=== PATIENT | female | born 1955 | race Asian ===

== ENCOUNTER 2016-05-22 17:18 | Observation (INO) | payer OTHER ==
[~2016-05-22] VITALS: Ht 170.2 cm; Wt 61.7 kg
[2016-05-22 17:56] VITALS: BP 161/93; TEMP 100.4; Ht 170.2 cm; Wt 61.7 kg
[2016-05-22 19:36] LABS: PLATELET COUNT 250 K/uL (152-353)
[2016-05-22 19:53] LABS: POTASSIUM 3.7 mmol/L (3.6-5.2); SODIUM 132 mmol/L (136-145)
[2016-05-22 20:00] VITALS: BP 139/87; TEMP 100.9
[2016-05-23 00:06] VITALS: BP 94/56; TEMP 98.6
[2016-05-23] MEDS ORDERED: LABETALOL100 MG OR (05:01)
[2016-05-23] MEDS ORDERED: HYDR5TAB9 PO (05:02)
[2016-05-23] MEDS ORDERED: METF100038 OR (05:03)
[2016-05-23] MEDS ORDERED: FENT25DI TD (05:04)
[2016-05-23] MEDS ORDERED: AMBIEN5 MG PO (05:04)
[2016-05-23 05:53] VITALS: BP 149/93; TEMP 98
[2016-05-23 08:00] VITALS: BP 160/98; TEMP 98
[2016-05-23 12:00] VITALS: BP 154/91; TEMP 98.1
[2016-05-23 16:00] VITALS: BP 158/89; TEMP 97.9
[2016-05-23 20:00] VITALS: BP 136/79; TEMP 97.8
[2016-05-24] VITALS: BP 133/76; TEMP 98.4
[2016-05-24 04:00] VITALS: BP 114/63; TEMP 98.2
[2016-05-24 08:00] VITALS: BP 155/84; TEMP 97.8
== END 2016-05-24 16:00 | disposition home or self-care (01) ==
LOC: MED/SURG 17:18 → EDBD 17:18 → MED/SURG 05-24 16:00
PROVIDERS: ADMIT Family Medicine
DX: B02.39 Other herpes zoster eye disease (principal); I89.0 Lymphedema, not elsewhere classified; C50.919 Malignant neoplasm of unspecified site of unspecified female breast; E13.9 Other specified diabetes mellitus without complications; E11.9 Type 2 diabetes mellitus without complications; I10 Essential (primary) hypertension; F32.9 Major depressive disorder, single episode, unspecified
CPT/HCPCS: 36415; 80053; 81000; 82947; 82948; 85027; 85651; 87040; 96365; 96366; 96367; 96372; 96374; 96375; 99220; G0378; G0379; J0133; J2920; J2930

== ENCOUNTER 2016-07-01 09:47 | Outpatient (CLI) | payer OTHER ==
[~2016-07-01 09:47] MED LIST: AMBIEN5 MG PO; FENT25DI TD; HYDR5TAB9 PO; LABETALOL100 MG OR; METF100038 OR
== END 2016-07-01 09:50 | disposition short-term general hospital (02) ==
LOC: AMB 09:47
DX: M79.89 Other specified soft tissue disorders (principal); M79.601 Pain in right arm
CPT/HCPCS: A0425; A0427

== ENCOUNTER 2016-07-01 09:50 | Emergency (ER) | payer OTHER ==
[~2016-07-01] VITALS: Ht 170.2 cm; Wt 64.0 kg
[2016-07-01 09:55] VITALS: TEMP 98
[2016-07-01 10:56] LABS: PLATELET COUNT 255 K/uL (152-353)
[2016-07-01 10:59] LABS: POTASSIUM 3.1 mmol/L (3.6-5.2)
[2016-07-01 14:00] VITALS: BP 108/62
== END 2016-07-01 14:00 | disposition home or self-care (01) ==
LOC: ED 09:50
PROVIDERS: Specialist
DX: C50.911 Malignant neoplasm of unspecified site of right female breast (principal); I89.0 Lymphedema, not elsewhere classified; R06.9 Unspecified abnormalities of breathing
CPT/HCPCS: 80053; 83735; 83880; 84100; 85027; 96374; 99284; J1885